=== PATIENT | female | born 1940 | race Caucasian/White ===

== ENCOUNTER → 2017-05-12 | Day surgery (SDC) | payer MEDICARE, BC ==
[~2017-05-12] MED LIST: ALL DAY ALLERGY10 M3 PO; ATORVASTATIN CA10 MG PO; FOLIC ACID1 MG PO; FORTEO750 MCG/3 IJ; LISINOPRIL5 MG PO; METHOTREXATE2.5 MG PO; OMEPRAZOLE20 M1 PO; PLAQUENIL200 MG PO; PREMARIN0.3 MG; SENAKOT; SYNTHROID75 MCG; VIT D PO; VITAMIN B 12; ZANTAC300 MG; ZESTORETIC1 TAB
--- NOTE | ~2017-05-12 | OR ---
Unit #: [id number] #: [id number] Patient: JOANNE HERNANDEZ [id number] [address] [place], [place] [address] [id number] MR#: [id number] NAME: JOANNE HERNANDEZ ROOM: Date of Procedure: 05/12/2017 Admission Date: 05/12/2017 Surgeon: Kai Boo Jr., M.D. : 1940 Attending Physician: Kai Boo Jr., M.D. Primary Care Physician: David Lainez M.D. OPERATIVE REPORT INDICATION FOR PROCEDURE The patient has had a known past history for esophageal stenosis. She has had some recent problems with vomiting and nausea as well as possibly some ulcerative colitis on CT scan. It was felt she needed both upper and lower endoscopy. She is brought in this time for these procedures at her request. She understands the procedure including the risk and consents. PREOPERATIVE DIAGNOSES Possible colitis, possible occult ulcer disease, possible esophageal stenosis. POSTOPERATIVE DIAGNOSES On upper endoscopy, the patient was noted to have no evidence of any stenosis, but there did appear to be some spasm of both the distal esophagus as well as the pyloric area. There was a number of small benign-appearing gastric polyps and a small hiatal hernia. On colonoscopy to the cecum, the patient was noted to have evidence of diverticulosis, but no evidence of any colitis or other abnormalities. ANESTHESIA MAC anesthesia. PROCEDURE PERFORMED Flexible fiberoptic esophagogastroduodenoscopy with biopsies of gastric polyps for pathology and flexible colonoscopy to the cecum. DESCRIPTION OF PROCEDURE The patient was positioned in Padilla position with left side down. After being given MAC anesthesia, the Olympus XQ scope was passed through the proximal esophagus. The entire esophagus was examined. Proximal two-thirds appeared normal. In the area of the distal esophagus, there was some slight spasm. No evidence of any stenosis and no significant inflammation. The scope was passed through the GE junction and the cardia, where there was a small hiatal hernia present into the fundic and antral region of the stomach, and retroflexed back up to the area of the cardia, again noted was a small hiatal hernia. The stomach distended well without evidence of rigidity. There were multiple small fundic and antral polyps. Several of these were biopsied for pathology without significant bleeding. No evidence of any gastric ulcer disease. There were no major changes per gastritis either. The scope was advanced through the pylorus, which appeared to be somewhat spastic and bled with passing the scope through it into the duodenal bulb and down to the second portion of the Unit #: [id number] #: [id number] Patient: JOANNE HERNANDEZ duodenum. The entire duodenal portion examination was within normal limits. The scope was slowly removed. The patient repositioned for colonoscopy. Digital rectal examination was performed, which revealed no palpable mass or tenderness. No blood or stool in the rectal ampulla. The Olympus colonoscope was advanced through the anal canal up the rectum and retroflexed down to the area of the anorectal region. There were small internal hemorrhoids, which were not actively bleeding and felt to be of no major significance. The scope was then straightened and advanced up in the rectosigmoid, in the sigmoid and descending colon areas were multiple diverticula without evidence of diverticulitis. The scope was then advanced around the splenic flexure and the transverse colon, around hepatic flexure and ascending colon, down in the area of the cecum. The light from the tip of the scope could be seen transilluminating through right lower quadrant abdominal wall area. Multiple attempts in advancing the scope up the distal ileum were unsuccessful. The scope was slowly removed. There were no tumors, polyps, cancer, or AVMs. No evidence of any ulcerative colitis or any other significant colitis. No diverticulitis. The caliber of the colon appeared normal throughout. The scope was removed. The patient tolerated the procedure well and discharged in satisfactory condition. Dictated by... Kai Boo Jr., M.D. JMB/kev TD: 05/12/2017 16:48 JOB #: [id number] CC: . OPERATIVE REPORT Page 1 of 1 X Kai Boo MD X PROCEDURE OPERATIVE NOTE
== END | disposition home or self-care (01) ==
LOC: COPS 11:13
DX: K31.7 Polyp of stomach and duodenum (principal); K44.9 Diaphragmatic hernia without obstruction or gangrene; K57.30 Diverticulosis of large intestine without perforation or abscess without bleeding; K22.4 Dyskinesia of esophagus; K64.8 Other hemorrhoids; K21.9 Gastro-esophageal reflux disease without esophagitis; I10 Essential (primary) hypertension; G43.909 Migraine, unspecified, not intractable, without status migrainosus; M81.0 Age-related osteoporosis without current pathological fracture; M06.9 Rheumatoid arthritis, unspecified; E78.5 Hyperlipidemia, unspecified; Z87.440 Personal history of urinary (tract) infections; Z79.899 Other long term (current) drug therapy; Z88.1 Allergy status to other antibiotic agents; Z90.710 Acquired absence of both cervix and uterus; Z98.42 Cataract extraction status, left eye; Z98.890 Other specified postprocedural states; Z90.49 Acquired absence of other specified parts of digestive tract; Z90.721 Acquired absence of ovaries, unilateral
CPT/HCPCS: 88305; 88312; J2405